=== PATIENT | male | born 1970 | race Caucasian/White ===

== ENCOUNTER 2022-07-01 12:39 | Emergency (ER) | payer BC ==
[~2022-07-01] VITALS: Ht 177.8 cm; Wt 80.0 kg
[2022-07-01] MEDS ORDERED: KETOROLAC 30MG/ML VIAL IV STA (14:25)
[2022-07-01] MEDS ORDERED: ONDANSETRON HCL 4MG/2ML INJ IV STA (14:25)
[2022-07-01] MEDS ORDERED: SODIUM CHLORIDE 0.9% 1,000 ML IV ONE (14:30)
[2022-07-01 14:57] LABS: CLARITY URINE CLEAR (CLEAR); COLOR URINE DARK YELLOW (YELLOW); KETONES URINE 2+ (NEGATIVE); LEUKOCYTE ESTERASE URINE NEGATIVE (NEGATIVE); NITRITE URINE NEGATIVE (NEGATIVE); OCCULT BLOOD URINE NEGATIVE (NEGATIVE); PROTEIN URINE 1+ (NEGATIVE); SPECIFIC GRAVITY URINE 1.023 (1.005-1.030)
[2022-07-01 15:35] VITALS: BP 149/97
[2022-07-01 15:47] LABS: BASOPHILS % 0.4 % (0.0-2.0); EOSINOPHILS % 0.1 % (0.0-5.0); HEMATOCRIT. 50.1 % (42.0-52.0); HEMOGLOBIN. 17.1 g/dL (14.0-18.0); LYMPHOCYTES % 8.4 % (20.0-50.0); MEAN CORPUSCULAR HEMOGLOBIN 31.8 pg (28.0-32.0); MONOCYTES % 7.5 % (2.0-8.0); NEUTROPHILS % 83.6 % (40.0-76.0); RED BLOOD CELL COUNT 5.38 mill/uL (4.7-6.1); RED CELL DISTRIBUTION WIDTH 13.4 % (11.6-14.6)
[2022-07-01 15:52] LABS: CHLORIDE 101 mEq/L (98-107)
[2022-07-01 16:06] LABS: MEAN PLATELET VOLUME 11.6 fl (7.4-10.4); PLATELET 157 x1000/uL (130-400)
[2022-07-01] MEDS ORDERED: ONDA4TAB50 MT (16:07)
== END 2022-07-01 18:02 | disposition home or self-care (01) ==
LOC: ER 12:50
DX: R10.9 Unspecified abdominal pain (principal); R11.2 Nausea with vomiting, unspecified; R56.9 Unspecified convulsions
CPT/HCPCS: 36415; 74176; 80053; 81003; 83690; 85025; 96361; 96374; 96375; 99291; J1885; J2405; J7030; Z7610